=== PATIENT | female | born 1945 ===

== ENCOUNTER 2023-03-23 06:00 | Day surgery (SDC) | payer OTHER ==
[~2023-03-23] VITALS: Ht 162.6 cm; Wt 63.0 kg
[~2023-03-23 06:00] MED LIST: GLUMETZA500 MG PO; LEVOTHYROXINE25 MCG PO; VITAMIN D3 PO
== END 2023-03-23 17:15 | disposition home or self-care (01) ==
LOC: CIR.AMB 06:00
PROVIDERS: ATTEND Otolaryngology Otology & Neurotology
DX: H66.92 Otitis media, unspecified, left ear (principal); H72.92 Unspecified perforation of tympanic membrane, left ear; H71.92 Unspecified cholesteatoma, left ear; D68.9 Coagulation defect, unspecified; Z20.822 Contact with and (suspected) exposure to COVID-19; Z88.1 Allergy status to other antibiotic agents